=== PATIENT | male | born 1965 | race Caucasian/White ===

== ENCOUNTER 2021-09-06 22:06 | Emergency (ER) | payer MEDICARE, OTHER ==
[2021-09-06 22:38] LABS: HEMOGLOBIN 10.3 gm/dl (14.0-17.5); RED BLOOD COUNT 5.13 M/UL (4.20-5.50); WHITE BLOOD COUNT 9.4 K/UL (4.5-11.0)
[2021-09-06 23:37] LABS: BUN/CREATININE RATIO 17 (0-10)
[2021-09-07] MEDS ORDERED: HYDROCODON-ACE1 EAC4 PO (01:07)
== END 2021-09-07 01:12 | disposition home or self-care (01) ==
LOC: ER1 22:06
PROVIDERS: Physician Assistant Medical
DX: T81.32XA Disruption of internal operation (surgical) wound, not elsewhere classified, initial encounter (principal); R07.89 Other chest pain; I25.10 Atherosclerotic heart disease of native coronary artery without angina pectoris; E78.5 Hyperlipidemia, unspecified; I10 Essential (primary) hypertension; I11.9 Hypertensive heart disease without heart failure; Z95.1 Presence of aortocoronary bypass graft; F17.210 Nicotine dependence, cigarettes, uncomplicated; X58.XXXA Exposure to other specified factors, initial encounter
CPT/HCPCS: 80053; 82550; 82553; 83880; 84484; 85025; 93005; 96374; 96375; 99285; J2270; J2405; Q9967

== ENCOUNTER 2021-12-24 19:56 | Emergency (ER) | payer MEDICARE, OTHER ==
[~2021-12-24 19:56] MED LIST: HYDROCODON-ACE1 EAC4 PO
[2021-12-24 20:48] LABS: HEMOGLOBIN 9.8 gm/dl (14.0-17.5); RED BLOOD COUNT 5.14 M/UL (4.20-5.50); WHITE BLOOD COUNT 5.9 K/UL (4.5-11.0)
[2021-12-24 21:13] LABS: BUN/CREATININE RATIO 9 (0-10)
== END 2021-12-25 00:48 | disposition home or self-care (01) ==
LOC: ER1 19:56
PROVIDERS: Family Medicine
DX: T81.31XA Disruption of external operation (surgical) wound, not elsewhere classified, initial encounter (principal); T85.898A Other specified complication of other internal prosthetic devices, implants and grafts, initial encounter; I25.10 Atherosclerotic heart disease of native coronary artery without angina pectoris; I25.2 Old myocardial infarction; E78.5 Hyperlipidemia, unspecified; I10 Essential (primary) hypertension; F17.210 Nicotine dependence, cigarettes, uncomplicated; Z95.1 Presence of aortocoronary bypass graft
CPT/HCPCS: 71045; 71260; 80053; 82550; 82553; 84484; 85025; 93005; 96374; 99285; J1885; Q9967